=== PATIENT | male | born 1960 | race African-American/Black ===

== ENCOUNTER 2017-09-22 10:52 | Emergency (ER) | payer BC | END 2017-09-22 13:24 | disposition home or self-care (01) | LOC: ER 10:52 | DX: S62.306A Unspecified fracture of fifth metacarpal bone, right hand, initial encounter for closed fracture (principal); F17.200 Nicotine dependence, unspecified, uncomplicated; F12.10 Cannabis abuse, uncomplicated; Z91.013 Allergy to seafood; W22.8XXA Striking against or struck by other objects, initial encounter; Y93.89 Activity, other specified; Y92.89 Other specified places as the place of occurrence of the external cause; Y99.8 Other external cause status | CPT/HCPCS: 29125; 73130; 99284-25 ==